=== PATIENT | female | born 1985 | race Caucasian/White ===

== ENCOUNTER 2018-09-14 07:21 | Inpatient (IN) | payer BC, OTHER ==
[2018-09-14] MEDS ORDERED: Lactated Ringer's 1,000 ML IV ONE (08:15)
[2018-09-14] MEDS ORDERED: cefOXitin IV 2 gm in Dextrose 2 GM/50 ML BAG IVPB ONE (08:15)
[2018-09-14 08:44] LABS: BASO # 0.1 K/uL (0.0-0.2); BASO % 0.7 % (0.0-2.0); EOS # 0.1 K/uL (0.0-0.7); EOS % 0.9 % (0.0-4.0); HEMOGLOBIN 11.9 g/dL (11.0-16.0); LYMPH # 2.7 K/uL (1.0-4.3); LYMPH % 21.5 % (20.0-40.0); MEAN CELL VOLUME 87.5 fL (81.0-99.0); MEAN CORPUSCULAR HEMOGLOBIN 29.7 pg (27.0-31.0); MEAN PLATELET VOLUME 10.1 fL (7.2-11.7); MONO # 0.9 K/uL (0.0-0.8); MONO % 7.3 % (0.0-10.0); NEUT # 8.8 K/uL (1.8-7.0); NEUT % 69.6 % (50.0-75.0); RED CELL DISTRIBUTION WIDTH 14.1 % (11.5-14.5); WHITE BLOOD COUNT 12.6 K/uL (4.8-10.8)
[2018-09-14] MEDS ORDERED: Sodium Citrate/Citric Acid 15 ml Sol PO ONE (08:45)
[2018-09-14] MEDS ORDERED: Lactated Ringer's 1,000 ML IV SCH (08:45)
[2018-09-14 08:50] LABS: SQUAMOUS EPITHIAL 7 /hpf (0-5); URINE BACTERIA OCC (<OCC); URINE BILIRUBIN NEGATIVE (NEGATIVE); URINE BLOOD NEGATIVE (NEGATIVE); URINE CLARITY Clear (Clear); URINE COLOR Yellow (YELLOW); URINE GLUCOSE (UA) NORMAL (Normal); URINE LEUKOCYTE ESTERASE NEG Leu/uL (Negative); URINE PROTEIN NEGATIVE (NEGATIVE); URINE UROBILINOGEN NORMAL mg/dL (0.2-1.0)
[2018-09-14 08:53] LABS: ALB/GLOB RATIO 1.2 (1.0-2.1); ALBUMIN 3.3 g/dL (3.5-5.0); BLOOD UREA NITROGEN 10 mg/dL (7-17); CALCIUM 8.5 mg/dl (8.6-10.4); GFR NON-AFRICAN AMERICAN > 60
[2018-09-14 08:54] LABS: ALT/SGPT 37 U/L (9-52); AST/SGOT 40 U/L (14-36)
[2018-09-14] MEDS ORDERED: cefOXitin IV 2 gm in Saline 2 GM/50 ML BAG IVPB ONE (10:08)
[2018-09-14] MEDS ORDERED: Sodium Citrate/Citric Acid 15 ml Sol ONE (10:08)
[2018-09-14] MEDS ORDERED: Oxytocin 20 units in LR 2,000 ML IV ONE (10:09)
[2018-09-14] MEDS ORDERED: Oxytocin 10 Units/ml Inj ONE (11:19)
--- NOTE | 2018-09-14 13:31 | OBDS ---
DELIVERY PERSONNEL Delivery Doctor: Violetta Chamberlain DO Manager Telecom: Jono Castañeda RN Anesthesiologist: amie MATERNAL INFORMATION Delivery Anesthesia: Spinal Medications in Delivery: pitocin 20units Estimated Blood Loss (ml): 600 Placenta Cultured: No Maternal Complications: None Provider Comments: Repeat LTC C/S with delivery of a viable Male from [facility] and Double Foot[place] g Breech. Apgars 9_9. BW 8lbs, 4oz. Lysis of Ahesions was also performed EBL 600 mls Placenta, cord blood and cord pH sent to lab Pt and both tolerated the procedure well and remained in OR in S_S condition. LABOR SUMMARY EDC: 09/22/2018 00:00 No. Babies in Womb: 1 Attempted: No Labor Anesthesia: None LABOR INFORMATION Reason for Induction: Not Applicable Other Ripening Agents: n/a Oxytocin: N/A Group B Beta Strep: Done, Result Unknown Steroids Given: None Reason Steroids Not Administered: Not Applicable MEMBRANES Membranes Rupture Method: Artificial Rupture of Membranes: 09/14/2018 11:13 Length of Rupture (hrs): 0.02 Amniotic Fluid Color: Clear Amniotic Fluid Amount: Moderate Amniotic Fluid Odor: Normal STAGES OF LABOR Stage 3 hrs: 0 Stage 3 min: 1 VAGINAL DELIVERY Episiotomy: None Laceration Extension: N/A Laceration Type: None Laceration Repair: Not Applicable CSECTION DELIVERY Primary Indication: Repeat Elective Other Primary Indication: Term Secondary Indication: N/A CSection Urgency: Elective CSection Incidence: Repeat Labor: No Labor Elective: Elective CSection Incision: Lower Uterine Transverse CSection Incision Other: Low Transverse Cervical Uterine Closure: Single-layer closure BABY A INFORMATION Infant Delivery Date/Time: 09/14/2018 11:14 Method of Delivery: Born in Route : No : N/A Forceps: N/A Vacuum Extraction: N/A Shoulder Dystocia : No SHOULDER DYSTOCIA BABY A Infant Delivery Date/Time: 09/14/2018 11:14 PRESENTATION/POSITION BABY A Presentation: Breech Cephalic Presentation: N/A Breech Presentation: Double Foot[place] PLACENTA INFORMATION BABY A Placenta Delivery Time : 09/14/2018 11:15 Placenta Method of Delivery: Manual Removal Placenta Status: Delivered SCORES BABY A Heart Rate 1 min: >100 bpm Resp Effort 1 min: Good Cry Reflex Irritability 1 min: Cough or Sneeze or Pulls Away Muscle Tone 1 min: Active Motion Color 1 min: Body Amo, Extremities Blue SCORE 1 MIN: 9 Heart Rate 5 min: >100 bpm Resp Effort 5 min: Good Cry Reflex Irritability 5 min: Cough or Sneeze or Pulls Away Muscle Tone 5 min: Active Motion Color 5 min: Body Amo, Extremities Blue SCORE 5 MIN: 9 INFANT INFORMATION BABY A Gestational Age at Delivery: 38.6 Gestational Status: Term Infant Outcome : Liveborn Condition : Stable Infant Sex: Male IDENTIFICATION/MEDS BABY A ID Band Number: [id number] ID Band Location: Left Leg; Left Arm Sensor Applied: Yes Sensor Number: [id number] Sensor Location : Cord Clamp Vitamin K Given : Not Given Erythromycin Given: Not Given WEIGHT/LENGTH BABY A Birthweight (gms): 3740 Infant Weight (lb): 8 Weight (oz): 4 Length Inches: 19.50 Infant Length cms: 49.5 CORD INFORMATION BABY A No. Cord Vessels: 3 Nuchal Cord : N/A Cord Blood Taken: Yes Infant Suction: Mouth; Nose ASSESSMENT BABY A Complications: None Physical Findings at Delivery: Within Normal Limits Respirations: Appears Normal Transportation Agent/ALS Called : Yes Care By: dr. rodriguez and mateo walker rn Transferred To: Remains with Mother
[2018-09-14] MEDS ORDERED: ePHEDrine 50 mg/ml Inj ONE (14:42)
[2018-09-14] MEDS: Simethicone 80 mg Chewtab PO SCH ×3 (14:53→22:00)
[2018-09-15] MEDS: Oxycodone/Acetaminophen 5/325 mg Tab PO PRN ×4 (05:00→22:33)
[2018-09-15 08:19] LABS: HEMOGLOBIN 11.5 g/dL (11.0-16.0); MEAN CELL VOLUME 87.8 fL (81.0-99.0); MEAN CORPUSCULAR HGB CONC 34.2 g/dL (33.0-37.0); MEAN PLATELET VOLUME 9.9 fL (7.2-11.7); RBC 3.84 Mil/uL (3.80-5.20); RED CELL DISTRIBUTION WIDTH 14.5 % (11.5-14.5); WHITE BLOOD COUNT 12.9 K/uL (4.8-10.8)
[2018-09-15] MEDS: Prenatal Multivit/Folic Acid/Iron Tab PO SCH (09:53)
[2018-09-15] MEDS: Simethicone 80 mg Chewtab PO SCH ×4 (09:54→22:35)
--- NOTE | 2018-09-15 17:14 | OBPPN ---
Datetime: 09/15/2018 11:13 PP Pain Prov: Within normal limits PP Nausea Prov: Denies PP Flatus Prov: No PP BM Prov: No PP Breasts Prov: Normal PP Heart Prov: Normal PP Lungs Prov: Normal PP Abdomen/Uterus Prov: Normal PP Lochia Prov: Normal PP Vulva/Perineum Prov: Not Done PP CVA Tenderness Prov: Normal PP Extremities Prov: Normal PP C/S Incision Prov: Normal PP Progress Prov: Normal PP Comments Phys Exam Prov: Abdomen: Soft. non distended. Healed abdominoplasty scar. Incision with rosette - clean dry and intact. Fundus firm, mobile, appropriately tender, 1 FB above umbilicus. Mode rate lochia Extremities: no calf tenderness or edema All other systems reviewed and are negative PP Impression Prov: Normal progression PP Plan Prov: Continue present management PP Progress Note Prov: This 32 year old female with PMHx of GERD is POD#1 s/p repeat . She has nott been out of bed, stating that she's "feeling lazy," but will attempt to ambulate this a fternoon. She denies any urination, any bowel movement, or passing any flatus. She does report mild-m oderate lynda-incisional discomfort thats well managed. She reports resting comfortably. Denies f/c, c hest pain, SOB, n/v, LE edema, or any additional acute complaints. A_P: -POD#1, s/p repeat -encouraged ambulation -if no urination by this afternoon, insert estrada catheter -H/H 11.9/35 -> 11.5/33.7; continue to monitor -continue pain management- motrin 600 po q6H PRN; Percocet 5/325 PO q4H PRN; Morphine 2mg IVP q6H PRN -Continue colace -BP 96/63 - continue PO hydration and LR 125cc/hr -Continue zofran 4mg IVP PRN -continue regular diet Case discussed with Dr. Damian Nuñez DO, PGY3 Attending Note: patient seen, evaluated and examined by me with the resident. I agree with the abo ve as documented. - POD#!, 32 y.o. P2, S/P repeat C/S #1 with FRIEDA. Returning GI and functions (notified by Reside nt, patient informed him of spontaneous micturition). Afebrile, vital signs stable. H/H stable. Patie nt encouraged to ambulate; and to shower - keeping incision clean and dry. Patient is clinically st able. - Continue present management IP PP Procedures: None Vital Signs Provider PP: Reviewed Vital Signs Provider Details PP: BP 96/63
[2018-09-16] MEDS: Prenatal Multivit/Folic Acid/Iron Tab PO SCH (10:11)
[2018-09-16] MEDS: Simethicone 80 mg Chewtab PO SCH ×4 (10:11→21:13)
[2018-09-16] MEDS: Oxycodone/Acetaminophen 5/325 mg Tab PO PRN ×3 (10:13→21:15)
--- NOTE | 2018-09-16 21:32 | OBPPN ---
Datetime: 09/16/2018 07:00 PP Pain Prov: Within normal limits PP Nausea Prov: Denies PP Flatus Prov: Yes PP BM Prov: No PP Heart Prov: Normal PP Lungs Prov: Normal PP Abdomen/Uterus Prov: Normal PP Lochia Prov: Normal PP Extremities Prov: Abnormal PP C/S Incision Prov: Normal PP Progress Prov: Normal PP Comments Phys Exam Prov: Abdomen: Uterine fundus is 1 finger breadth below umbilicus. Lower abdom inal incision with rosette is clean, dry and without signs of infection Extremities: Non-pitting edema to bilateral feet and ankles, R>L. Non-tender to palpation, full RO M. PP Impression Prov: Normal progression PP Plan Prov: Continue present management PP Progress Note Prov: 32 year old female status post repeat POD#2. Patient seen a nd examined at bedside. Complains of pain 8/10 that is improved to 3/10 with percocet. + lochia rubra . + flatus, denies bowel movement. Patient states she is eating well and walking. She is breast feedi ng and bottle feeding. Does report some LE swelling that began last night. Denies fever, chills, naus ea, vomiting, chest pain and Shortness of breath. A_P: -POD#2, s/p repeat -encouraged ambulation -continue pain management- motrin 600 po q6H PRN; Percocet 5/325 PO q4H PRN -Continue colace -BP improved 108/75 - continue PO hydration -continue regular diet Case discussed with Dr. Chamberlain. Leticia Bey, PGY-1. Vital Signs Provider PP: Reviewed; Within Normal Limits
[2018-09-17] MEDS: Oxycodone/Acetaminophen 5/325 mg Tab PO PRN ×2 (05:31→09:58)
[2018-09-17] MEDS ORDERED: POLYETHYLENE GLYCOL 3350 17 GM/Dose PACKET PO ONE ×2 (08:00→11:45)
[2018-09-17 08:38] VITALS: BP 103/64; PULSE 61; RESP 20; TEMP 97.8; O2SAT 97
[2018-09-17] MEDS: Simethicone 80 mg Chewtab PO SCH (09:57)
[2018-09-17] MEDS: Prenatal Multivit/Folic Acid/Iron Tab PO SCH (09:58)
[2018-09-17] MEDS ORDERED: Influenza Vaccine 60 MCG/0.5 ML SYR (3 yr & up) IM ONE (11:37)
--- NOTE | 2018-09-17 18:09 | OBDCSUM ---
Datetime: 09/17/2018 11:27 Discharged to, Provider: Home Follow up at, Provider: [facility] Disch Instr Activity: May be up for meals; May Shower Disch Instr Diet: Regular Discharge Instructions, Provider: Routine instructions given Discharge Diagnosis, Provider: Term Delivered Discharge Time: 09/17/2018 12:00 Follow up in weeks, Provider: September 24, 2018 Disch Referrals: None Contraception discussed, Prov: Yes Disch Activity Restrictions: No exercising; No lifting; No sexual activity; Nothing in vagina - Inte rcourse, tampons, douche Discharge Diagnosis Prov Other: Status post repeat C/S Status post lysis of adhesions Contraception counseling Contraception after Delivery: IUD
--- NOTE | 2018-09-17 18:12 | OBPPN ---
Datetime: 09/17/2018 07:09 PP Breasts Prov: Normal PP Heart Prov: Normal PP Lungs Prov: Normal PP Abdomen/Uterus Prov: Normal PP Lochia Prov: Normal PP Vulva/Perineum Prov: Not Done PP CVA Tenderness Prov: Normal PP Extremities Prov: Normal PP C/S Incision Prov: Normal PP Progress Prov: Normal PP Comments Phys Exam Prov: Abdomen: soft, non-distended. Uterine fundus is 1 finger breadth below u mbilicus. Lower abdominal incision with rosette is clean, dry and without signs of infection Extremities: Non-pitting edema to bilateral ankles, R>L improved from yesterday. Non-tender to pal pation, full ROM. PP Impression Prov: Normal progression PP Plan Prov: Discharge PP Progress Note Prov: 32 year old female POD #3 status post repeat . Patient was s een and examined at bedside. She reports increased pain compared to yesterday, 10/10 without medicait on and improved to 3/10 with percocet 5/325 x2. Reports minimal lochia serosa. She is passing flatus, denies bowel movmement. She is tolerating diet. She has been walking in the hallways. She is breast and bottle feeding. Reports continued swelling to lower extremities. Denies fever, chills, nausea, vo miting, lower extremity pain, chest pain and shortness of breath. A_P: -POD#3, s/p repeat -Patient is stable for discharge. -Maintain pelvic rest for 6 weeks. -Continue vitamins for 3-4 months. -Percocet 5/325mg 1 tablet every 6 hours as needed for pain. -Motrin 800mg every 8 hours as needed for pain. -Colace 100mg twice daily for constipation. As well as increase vegetable intake and drink plenty of water. -Follow up with your Ob-pr intern for staple removal within one week of discharge Case discussed with Dr. Salgado. Leticia Bey, PGY-1 Attending Note: patient seen and evaluated by me with the Resident. I agree with the above as docu mented. - 32 y.o. P2, POD#2, S/P C/S #2 with FRIEDA. Returning GI and functions. Afebrile, vital signs sta ble. Patient with h/o constipation. Patient is interested in IUD for contraception. Patient is clinic ally stable. Plan: 1) Discharge home 2) See full discharge instrucitons IP PP Procedures: None Vital Signs Provider PP: Reviewed; Within Normal Limits
== END 2018-09-17 12:15 | disposition home or self-care (01) | DRG 788 ==
LOC: C.EROB 07:21 → C.4D 07:37 → C.4M 14:21
PROVIDERS: ADMIT Obstetrics & Gynecology; ATTEND Obstetrics & Gynecology
PROC: 10D00Z1 Extraction of Products of Conception, Low, Open Approach (ICD-10-PCS; principal; 2018-09-14)
DX: O34.211 Maternal care for low transverse scar from previous cesarean delivery (principal); Z3A.38 38 weeks gestation of pregnancy; O32.8XX0 Maternal care for other malpresentation of fetus, not applicable or unspecified; Z30.09 Encounter for other general counseling and advice on contraception; Z37.0 Single live birth